=== PATIENT | male | born 1930 | race Hispanic/Latino ===

== ENCOUNTER 2019-12-31 09:12 | Emergency (ER) | payer MEDICARE ==
[2019-12-31] MEDS ORDERED: ASPIRIN 325 MG TAB PO ONE (09:36)
--- NOTE | 2019-12-31 09:55 | Emergency Department Report ---
HPI - General Chief Complaint: Chest Pain Time Seen by Provider: 12/31/19 09:47 - HPI HPI: 89-year-old male presents to the emergency department via private auto from home with complaint of his defibrillator going off and shocking him starting at around 7:30 AM. He does not know how many times he was shocked but says it was a few. He denies any current chest pain or shortness of breath. He has a [employer] AICD/pacemaker in place that was in place since 2009. The patient and his significant other just moved here from [facility] 3 days ago and therefore do not have any local primary care or cardiology physicians. He has a past medical history of CVA with some "drooling", coronary artery disease with IL x5, cardiac stents and triple bypass surgery. He did not take anything for his symptoms prior to presentation today. ED Past Medical Hx - Social History Smoking Status: Never Smoker Substance Use Type: None ED Review of Systems ROS: Stated complaint: Defib shocking me Other details as noted in HPI Comment: All other systems reviewed and negative Constitutional: denies: chills, fever Eyes: denies: eye pain, vision change ENT: denies: ear pain, throat pain Respiratory: denies: cough, shortness of breath Cardiovascular: chest pain (defibrillations). denies: edema Gastrointestinal: denies: abdominal pain, vomiting Genitourinary: denies: dysuria, discharge Musculoskeletal: denies: back pain, arthralgia Skin: denies: rash, lesions Neurological: denies: headache, weakness Physical Exam - Physical Exam Vital Signs: Vital Signs 12/31/19 09:24 Pulse Rate 70 Respiratory 18 Rate Blood Pressure 124/49 [Right] O2 Sat by Pulse 100 Oximetry Physical Exam: GENERAL: The patient is well-developed well-nourished. HENT: Normocephalic. Atraumatic. Patient has moist mucous membranes. EYES: Extraocular motions are intact. NECK: Supple. Trachea is midline. CHEST/LUNGS: Clear to auscultation. There is no respiratory distress noted. There is no chest pain to palpation of the chest wall. No crepitus or deformity. The AICD/pacemaker is seen in the left anterior chest wall. HEART/CARDIOVASCULAR: Regular. There is no tachycardia. ABDOMEN: Abdomen is soft, nontender. Patient has normal bowel sounds. There is no abdominal distention. SKIN: Skin is warm and dry. NEURO: The patient is awake, alert, and cooperative. The patient has no focal neurologic deficits. Normal speech. MUSCULOSKELETAL: There is no tenderness or deformity. There is no evidence of acute injury. ED Course Vital Signs 12/31/19 09:24 Pulse Rate 70 Respiratory 18 Rate Blood Pressure 124/49 [Right] O2 Sat by Pulse 100 Oximetry ED Medical Decision Making - Lab Data Result diagrams: 12/31/19 09:47 12/31/19 09:47 - EKG Data -: EKG Interpreted by Me - EKG Data Interpretation: other (Ventricular paced, rate of 70, normal axis, normal intervals) - Radiology Data Radiology results: image reviewed interpreted by me: Chest x-ray does not show any acute process. There are no pleural effusions, obvious pneumonia and there is no pneumothorax. - Medical Decision Making This patient presents to the emergency department with a complaint of a possible firing or discharge of his AICD this morning starting at about 7:30 AM. The patient denies ever having any chest pain, shortness of breath, back pain. On examination he does not appear in any respiratory or overall acute distress. EKG did not show any signs of ST elevation IL. Patient's labs have been mostly unremarkable. Chest x-ray does not show any acute process. The motor vehicle representative from [employer] came to the emergency department and interrogated the AICD/pacemaker and there was no discharge, firing of the AICD, or any runs of V. tach. His vital signs been stable throughout his ED course. The patient will be discharged home to follow-up with cardiology in the next few days. He has been instructed to return to the ER with any worsening of his symptoms or any acute distress. - Differential Diagnosis Arrhythmia, CHF, IL Critical Care Time: No Critical care attestation.: If time is entered above; I have spent that time in minutes in the direct care of this critically ill patient, excluding procedure time. ED Disposition Clinical Impression: Cardiac defibrillator in place Disposition: DC-01 TO HOME OR SELFCARE Is pt being admited?: No Condition: Stable Additional Instructions: Please follow-up with the press writer in the next few days. The AICD/pacemaker was interrogated today by the motor vehicle representative from [employer] and there does not appear to have been any shocks or defibrillations. Return to the emergency department with any worsening of your symptoms or any acute distress. Referrals: NICOLASA BROWNE MD [Staff Physician] - 2-3 Days Time of Disposition: 13:48
[2019-12-31 10:44] LABS: Basophils # (Auto) 0.1 K/mm3 (0.0-0.1); Basophils % (Auto) 1.3 % (0.0-1.8); Eosinophils # (Auto) 0.6 K/mm3 (0.0-0.4); Eosinophils % (Auto) 6.2 % (0.0-4.3); Hematocrit 38.8 % (35.5-45.6); Hemoglobin 12.9 gm/dl (11.8-15.2); Lymphocytes # (Auto) 1.6 K/mm3 (1.2-5.4); Lymphocytes % (Auto) 17.2 % (13.4-35.0); Mean Corpuscular HGB Conc 33 % (32-34); Mean Corpuscular Volume 90 fl (84-94); Monocytes # (Auto) 0.6 K/mm3 (0.0-0.8); Red Blood Count 4.31 M/mm3 (3.65-5.03)
[2019-12-31 10:46] LABS: Platelet Count 95 K/mm3 (140-440)
--- NOTE | 2019-12-31 11:40 | XRay Report ---
CHEST 1 VIEW 12/31/2019 10:32 AM INDICATION / CLINICAL INFORMATION: Chest Pain. COMPARISON: None available. FINDINGS: SUPPORT DEVICES: Unremarkable appearing left ICD. HEART / MEDIASTINUM: Normal heart size with sternotomy changes and mild aortic atherosclerosis. LUNGS / PLEURA: No significant pulmonary or pleural abnormality. No pneumothorax. ADDITIONAL FINDINGS: No significant additional findings. IMPRESSION: 1. No acute abnormality of the chest. Signer Name: Rahul Gutierrez MD Signed: 12/31/2019 11:36 AM Workstation Name: [id number]
[2019-12-31 12:07] LABS: BUN/Creatinine Ratio 17; Blood Urea Nitrogen 17 mg/dL (9-20); Calcium 9.5 mg/dL (8.4-10.2); Hemolysis Index 5
[2019-12-31 14:09] VITALS: BP 125/60
== END 2019-12-31 14:09 | disposition home or self-care (01) ==
LOC: ED 09:12
DX: Z95.810 Presence of automatic (implantable) cardiac defibrillator (principal)
CPT/HCPCS: 36415; 71045; 80048; 84484; 85025; 93005; 93010

== ENCOUNTER 2020-06-03 12:42 | Emergency (ER) | payer MEDICARE ==
[2020-06-03 13:19] VITALS: BP 156/80
--- NOTE | 2020-06-03 13:51 | Cat Scan Report ---
NONENHANCED CT SCAN OF THE HEAD: INDICATION / CLINICAL INFORMATION: 89 years Male; head injury. TECHNIQUE: Routine CT head without contrast. All CT scans at this location are performed using CT dos e reduction for ALARA by means of automated exposure control. COMPARISON: None. FINDINGS: Please note that this is a limited CT scan. Transverse images had to be repeated due to mot ion related artifacts. BRAIN / INTRACRANIAL CONTENTS: No intracranial sequela from the trauma; no air-fluid level in the vis ualized portions of the paranasal sinuses. Left frontal scalp hematoma No acute hemorrhage, mass effect, midline shift, hydrocephalus, or acute, large territorial infarct. Moderate cortical involution; periventricular and deep hemispheric low attenuation areas due to herbicide sprayer henry small vessel disease; multiple focal low-attenuation white matter lesions due to chronic small ve ssel disease; calcified emboli in the left sylvian fissure and in the left intraparietal sulcus CRANIOCERVICAL JUNCTION: No significant abnormality. ORBITS: No significant abnormality of visualized orbits. SINUSES / MASTOIDS: No significant abnormality of the visualized paranasal sinuses or mastoid air gunnar ls. ADDITIONAL FINDINGS: None. IMPRESSION: No intracranial sequela from the trauma Left frontal scalp hematoma Signer Name: Rory Urena MD Signed: 06/03/2020 1:47 PM Workstation Name: [id number]
[2020-06-03] MEDS ORDERED: LIDOCAINE 1%/EPINEPHRINE 1:100,000 VIAL (20 ML) INFILTRATI NR (14:00)
[2020-06-03] MEDS ORDERED: NEOMY 3.5 MG/BACIT 400 UNITS/POLY B 5000 UNITS/GM OINT PACKET TP ONE (15:07)
--- NOTE | 2020-06-03 15:16 | Emergency Department Report ---
ED Fall HPI - General Chief Complaint: Fall Stated Complaint: HEAD BLEED Time Seen by Provider: 06/03/20 13:04 Source: EMS Mode of arrival: Stretcher - History of Present Illness Initial Comments: Patient is a 89-year-old male with no significant past medical history except for being on blood thinners who suffered a fall prior to arrival. Patient was leaving his primary care physician's office and he was waiting for transportation. His daughter told him to sit at his walker but he decided to get up before she was able to assist him. Patient fell face forward and struck the front of his head. Patient complained of a mild headache which is 4 out of 10 in severity. There was no loss of consciousness no nausea vomiting and the patient appears to be at his baseline currently. - Related Data Allergies Allergy/AdvReac Type Severity Reaction Status Date / Time No Known Allergies Allergy Unverified 12/31/19 09:36 ED Review of Systems ROS: Stated complaint: HEAD BLEED Other details as noted in HPI Comment: All other systems reviewed and negative ED Past Medical Hx - Past Medical History Previous Medical History?: Yes Hx Hypertension: Yes Hx CVA: Yes Hx Congestive Heart Failure: Yes Hx COPD: Yes Additional medical history: partially blind, deaf, ischemic cardiomyopathy, MIx5 - Surgical History Past Surgical History?: Yes Hx Pacemaker: Yes (AICD) Additional Surgical History: CABG, stents, valve replacement - Social History Smoking Status: Never Smoker Substance Use Type: None ED Physical Exam - General Limitations: Other General appearance: alert, in no apparent distress - Head Head exam: Present: atraumatic, normocephalic - Expanded Head Exam Expanded Head exam: Present: laceration, abrasion 1 - Large abrasion 2 - 2 cm jagged laceration 3 - 1 cm laceration - Eye Eye exam: Present: normal appearance, PERRL, EOMI - ENT ENT exam: Present: mucous membranes moist - Neck Neck exam: Present: normal inspection - Respiratory Respiratory exam: Present: normal lung sounds bilaterally. Absent: respiratory distress, wheezes, rales, rhonchi - Cardiovascular Cardiovascular Exam: Present: regular rate, normal rhythm. Absent: systolic murmur, diastolic murmur, rubs, gallop - GI/Abdominal GI/Abdominal exam: Present: soft, normal bowel sounds - Rectal Rectal exam: Present: deferred - Extremities Exam Extremities exam: Present: normal inspection - Back Exam Back exam: Present: normal inspection - Neurological Exam Neurological exam: Present: alert, oriented X3 - Psychiatric Psychiatric exam: Present: normal affect, normal mood - Skin Skin exam: Present: warm, dry, intact, normal color. Absent: rash ED Course Vital Signs 06/03/20 13:02 Temperature 97.4 F L Pulse Rate 69 Respiratory 18 Rate Blood Pressure 156/80 O2 Sat by Pulse 99 Oximetry - Laceration /Wound Repair Anterior Head Wound Location: head Wound Length (cm): 3 (total laceration length) Wound's Depth, Shape: linear, irregular Wound Explored: clean Irrigated w/ Saline (ccs): 200 Betadine Prep?: Yes Anesthesia: Lidocaine w/ Epi Volume Anesthetic (ccs): 4 Suture Size/Type: 4:0, nylon Number of Sutures: 6 Sterile Dressing Applied?: Yes ED Medical Decision Making - Radiology Data [facility] [address] [place] [address] Cat Scan Report Signed Patient: ABHISHEK WOOD MR#: [id number] 55 : 1930 Acct:[id number] Age/Sex: 89 / M ADM Date: 06/03/20 Loc: ED Attending Dr: Ordering Physician: KAYLA LANDAVERDE MD Date of Service: 06/03/20 Procedure(s): CT head/brain wo con Accession Number(s): [id number] cc: KAYLA LANDAVERDE MD NONENHANCED CT SCAN OF THE HEAD: INDICATION / CLINICAL INFORMATION: 89 years Male; head injury. TECHNIQUE: Routine CT head without contrast. All CT scans at this location are performed using CT dose reduction for ALARA by means of automated exposure control. COMPARISON: None. FINDINGS: Please note that this is a limited CT scan. Transverse images had to be repeated due to motion related artifacts. BRAIN / INTRACRANIAL CONTENTS: No intracranial sequela from the trauma; no air- fluid level in the visualized portions of the paranasal sinuses. Left frontal scalp hematoma No acute hemorrhage, mass effect, midline shift, hydrocephalus, or acute, large territorial infarct. Moderate cortical involution; periventricular and deep hemispheric low attenuation areas due to chronic small vessel disease; multiple focal low-attenuation white matter lesions due to chronic small vessel disease; calcified emboli in the left sylvian fissure and in the left intraparietal sulcus CRANIOCERVICAL JUNCTION: No significant abnormality. ORBITS: No significant abnormality of visualized orbits. SINUSES / MASTOIDS: No significant abnormality of the visualized paranasal sinuses or mastoid air cells. ADDITIONAL FINDINGS: None. IMPRESSION: No intracranial sequela from the trauma Left frontal scalp hematoma Signer Name: Rory Urena MD Signed: 06/03/2020 1:47 PM Workstation Name: [id number] - Medical Decision Making Patient is 89-year-old male suffered a fall. Patient has no intracranial bleeding. There is no skull fractures. Laceration was repaired and patient be discharged home. Critical care attestation.: If time is entered above; I have spent that time in minutes in the direct care of this critically ill patient, excluding procedure time. ED Disposition Clinical Impression: Closed head injury Qualifiers: Encounter type: initial encounter Qualified Code(s): S09.90XA - Unspecified injury of head, initial encounter Scalp laceration Qualifiers: Encounter type: initial encounter Qualified Code(s): S01.01XA - Laceration without foreign body of scalp, initial encounter Disposition: - TO HOME OR SELFCARE Is pt being admited?: No Does the pt Need Aspirin: No Condition: Stable Instructions: Minor Head Injury (ED), Concussion (ED), Laceration (ED) Additional Instructions: Please have sutures removed in 5 to 7 days Referrals: DE MORALES MD [Referring] - 7-10 days Time of Disposition: 15:18
== END 2020-06-03 15:32 | disposition home or self-care (01) ==
LOC: ED 12:42
DX: S09.90XA Unspecified injury of head, initial encounter (principal); S01.01XA Laceration without foreign body of scalp, initial encounter; I50.9 Heart failure, unspecified; I11.0 Hypertensive heart disease with heart failure; J44.9 Chronic obstructive pulmonary disease, unspecified; Z86.73 Personal history of transient ischemic attack (TIA), and cerebral infarction without residual deficits; Z98.890 Other specified postprocedural states; W19.XXXA Unspecified fall, initial encounter; Y93.89 Activity, other specified; Y92.89 Other specified places as the place of occurrence of the external cause; Y99.8 Other external cause status
CPT/HCPCS: 70450; A6250